=== PATIENT | female | born 1940 | race Caucasian/White ===

== ENCOUNTER → 2018-10-08 | Outpatient (CLI) | payer MEDICARE, OTHER ==
[~2018-10-08] MED LIST: ALEN70 PO; ASPI81CH; CEPH500 PO; CHOL10002; Calcium + Vita1 EACH; LEVSOD50 PO; LEVSOD75 PO; LISI20 PO; LISI5 PO; MELA3 PO; MULVITMIND PO; RXCEPH500 PO; SULTRIDS PO; XARELTO20 MG
[2018-10-08 12:10] LABS: Sodium, Urine, Random 40 mmol/L (20-110)
[2018-10-08 15:36] LABS: Osmolality, Urine 141 mos/kg (15-1400)
== END | disposition home or self-care (01) ==
LOC: LAB SHORT 10:15 → LAB UCHC 10:15
PROVIDERS: Internal Medicine
DX: E78.1 Pure hyperglyceridemia (principal)
CPT/HCPCS: 83935; 84300